=== PATIENT | male | born 1980 | race Caucasian/White ===

== ENCOUNTER 2016-11-27 09:08 | Emergency (ER) | payer MEDICAID | END 2016-11-27 11:49 | disposition home or self-care (01) | LOC: D.ER 09:08 | DX: M25.562 Pain in left knee (principal); F17.200 Nicotine dependence, unspecified, uncomplicated ==

== ENCOUNTER 2017-03-22 13:27 | Emergency (ER) | payer MEDICAID | END 2017-03-22 18:26 | disposition home or self-care (01) | LOC: D.ER 13:27 | DX: M25.562 Pain in left knee (principal); F31.89 Other bipolar disorder; F20.9 Schizophrenia, unspecified; F17.200 Nicotine dependence, unspecified, uncomplicated ==

== ENCOUNTER 2017-03-28 07:17 | Emergency (ER) | payer MEDICAID | END 2017-03-28 09:06 | disposition home or self-care (01) | LOC: D.ER 07:17 | DX: M25.562 Pain in left knee (principal); F31.89 Other bipolar disorder; F20.9 Schizophrenia, unspecified ==

== ENCOUNTER 2017-06-10 15:40 | Emergency (ER) | payer MEDICAID | END 2017-06-10 16:45 | disposition home or self-care (01) | LOC: D.ER 15:40 | DX: R51 Headache (principal); F31.89 Other bipolar disorder; F17.200 Nicotine dependence, unspecified, uncomplicated ==

== ENCOUNTER 2018-11-15 21:34 | Emergency (ER) | payer MEDICAID ==
[~2018-11-15] VITALS: Ht 185.4 cm; Wt 118.2 kg
[2018-11-15 21:38] VITALS: Ht 185.4 cm; Wt 118.2 kg
[2018-11-15] MEDS ORDERED: TORADOL10 MG PO (22:20)
[2018-11-15 22:42] VITALS: BP 132/79
== END 2018-11-15 22:43 | disposition home or self-care (01) ==
LOC: D.ER 21:34
DX: S46.001A Unspecified injury of muscle(s) and tendon(s) of the rotator cuff of right shoulder, initial encounter (principal); X58.XXXA Exposure to other specified factors, initial encounter; Y93.89 Activity, other specified; Y92.89 Other specified places as the place of occurrence of the external cause; F17.200 Nicotine dependence, unspecified, uncomplicated